=== PATIENT | female | born 1975 | race Caucasian/White ===

== ENCOUNTER 2019-09-23 08:20 | Emergency (ER) | payer OTHER ==
[~2019-09-23] VITALS: Ht 170.2 cm; Wt 63.5 kg
[2019-09-23 08:28] VITALS: BP 125/81
--- NOTE | 2019-09-23 08:55 | PHYS DOC ---
Adult General Chief Complaint Chief Complaint: COUGH HPI HPI Patient is a 43-year-old female who presents with complaint of cough and chest congestion for the last few days. Patient states the cough is been moist but she's not been able to actually get any sputum up. She does not believe that she is been running a fever. She is concerned that she could be developing a pneumonia. She does indicate that she has a lot of soreness in her chest from all the coughing.[] Review of Systems Review of Systems Constitutional: Denies fever or chills [] Respiratory: Positive cough without shortness of breath [] Cardiovascular: No additional information not addressed in HPI [] GI: Denies abdominal pain, nausea, vomiting or diarrhea [] Integument: Denies rash or skin lesions [] Neurologic: Denies headache, focal weakness or sensory changes [] Allergies Allergies Allergies Coded Allergies Type Severity Reaction Last Updated Verified No Known Drug Allergies 09/23/19 No Physical Exam Physical Exam Constitutional: Well developed, well nourished, no acute distress, non-toxic appearance. [] Cardiovascular: Regular rate and rhythm[] Lungs & Thorax: Fine rhonchi are noted bilaterally to auscultation [] Skin: Warm, dry, no erythema, no rash. [] Extremities: No tenderness, no cyanosis, no clubbing, ROM intact, no edema. [] Neurologic: Alert and oriented X 3, no focal deficits noted. [] EKG EKG [] Radiology/Procedures Radiology/Procedures [] Impressions: PROCEDURE: CHEST PA & LATERAL EXAM: Chest, 2 views. HISTORY: Cough. COMPARISON: None. FINDINGS: 2 views of the chest are obtained. There is no infiltrate, pleural effusion or pneumothorax. The heart is normal in size. There is hyperinflation due to inspiratory effort or emphysema. There are calcified granulomas within the right upper lobe. IMPRESSION: No acute pulmonary finding. Electronically signed by: Hilda Meng MD (09/23/2019 8:58 AM) [facility] Course & Med Decision Making Course & Med Decision Making Pertinent Labs and Imaging studies reviewed. (See chart for details) [] Dragon Disclaimer Dragon Disclaimer This electronic medical record was generated, in whole or in part, using a voice recognition dictation system. Departure Departure: Impression: Primary Impression: Acute bronchitis Disposition: 01 HOME, SELF-CARE Condition: STABLE Referrals: ANIA STALLINGS DO, [facility] (PCP) Patient Instructions: Acute Bronchitis Scripts Azithromycin (ZITHROMAX) 250 Mg Tablet 1 PKG PO UD for infection, #6 TAB Prov: LIZZY STACY Jr., DO 09/23/19 Problem Qualifiers Primary Impression: Acute bronchitis Bronchitis organism: unspecified organism Qualified Codes: J20.9 - Acute bronchitis, unspecified LIZZY STACY Jr., DO Sep 23, 2019 08:55
--- NOTE | 2019-09-23 09:01 | RAD ---
EXAM: Chest, 2 views. HISTORY: Cough. COMPARISON: None. FINDINGS: 2 views of the chest are obtained. There is no infiltrate, pleural effusion or pneumothorax. The heart is normal in size. There is hyperinflation due to inspiratory effort or emphysema. There are calcified granulomas within the right upper lobe. IMPRESSION: No acute pulmonary finding. Electronically signed by: Hilda Meng MD (09/23/2019 8:58 AM) [id number]
[2019-09-23] MEDS ORDERED: AZIT250T PO (09:02)
== END 2019-09-23 09:15 | disposition home or self-care (01) ==
LOC: ER 08:20
DX: J20.9 Acute bronchitis, unspecified (principal)
CPT/HCPCS: 71046; 99284